=== PATIENT | female | born 2000 | race Caucasian/White ===

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

== ENCOUNTER 2022-10-24 19:01 | Emergency (ER) | payer OTHER ==
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
[2022-10-24] MEDS ORDERED: Tetanus/Diphtheria/Pertussis (Acell) ADULT Vaccine 0.5 ML IM ONE (19:30)
[2022-10-24] MEDS ORDERED: LIDOCAINE 1% INJ 10 ML VIAL INJ ONE (19:30)
--- NOTE | 2022-10-24 22:21 | Diagnostic Imaging Report ---
INDICATION: Fall with right shoulder injury. EXAMINATION: AP, oblique and transscapular views of right shoulder were obtained. FINDINGS: No acute fracture or dislocation is identified. No abnormal lytic or sclerotic focus is seen, and there is no radiopaque foreign body. IMPRESSION: No acute abnormality. Dictated by: Dictated on workstation # [id number]
[2022-10-24 22:38] VITALS: BP 129/86
== END 2022-10-24 22:38 | disposition home or self-care (01) ==
LOC: EDUNIT# 19:01 → ER 19:03
DX: S81.011A Laceration without foreign body, right knee, initial encounter (principal); S80.212A Abrasion, left knee, initial encounter; S40.212A Abrasion of left shoulder, initial encounter; S60.512A Abrasion of left hand, initial encounter; S60.511A Abrasion of right hand, initial encounter; S50.312A Abrasion of left elbow, initial encounter; S30.811A Abrasion of abdominal wall, initial encounter; Z23 Encounter for immunization; V27.49XA Other motorcycle driver injured in collision with fixed or stationary object in traffic accident, initial encounter; Y93.55 Activity, bike riding
CPT/HCPCS: 73030; 90715